=== PATIENT | male | born 1965 | race Caucasian/White ===

== ENCOUNTER 2017-03-26 16:07 | Emergency (ER) | payer OTHER ==
--- NOTE | 2017-03-26 17:02 | EDPHY ---
H & P Stated Complaint: right knee swelling and tenderness started on wednesday Time Seen by Provider: 03/26/17 16:20 HPI/ROS: CHIEF COMPLAINT: Right leg pain and swelling History by patient HISTORY OF PRESENT ILLNESS: 52 old man presents complaining of pain and swelling in his right leg. Patient states that he played [employer] 3 days ago and the next morning his leg felt slightly sore but over the past 48 hr the pain is increased. The pains been localized to behind his right knee. This morning he woke up in his knee and calf were swollen. He can walk on it but slightly painful. He has not taken anything for the pain. He has no prior history of DVT. There has been no direct trauma or immobilization. There is no family history of DVTs that he knows of. Patient quit smoking 6 years ago. He had some shortness of breath while playing [employer] but none since. He also facially feels a catch when he inhales but he states that both the racquetball shortness of breath and this feeling are typical of his asthma symptoms. He denies any chest pain. REVIEW OF SYSTEMS: As in HPI, and all other systems reviewed and are negative Source: Patient - Personal History Tetanus Vaccine Date: may 2011 - Medical/Surgical History Hx Asthma: Yes Hx Chronic Respiratory Disease: No Hx Diabetes: No Hx Cardiac Disease: No Hx Renal Disease: No Hx Cirrhosis: No Hx Alcoholism: No Hx HIV/AIDS: No Hx Splenectomy or Spleen Trauma: No Other PMH: TONSILECTOMY, asthma,. ORTHO SURGERIES. HYPERTENSION - Social History Smoking Status: Never smoked - Physical Exam Exam: General Appearance: Alert and no distress. Eyes: Pupils equal and round no injection. Extraocular movements intact Lungs: Bilateral clear to auscultation with no wheezes, rales or rhonchi Cardiac: Regular rate and rhythm, S1-S2 with no murmurs gallops rubs appreciated Abdomen: Soft nondistended, nontender with no masses Musculoskeletal: Neck is supple and nontender. Extremities: Right leg positive swelling of knee and calf, positive warmth, positive posterior knee and calf tenderness, positive Homans, positive abrasions right abebe, DP pulse 2 +and equal to the left, distal sensation and cap refill intact, full range of motion of knee and ankle. Neuro: Awake alert oriented x3 cranial she 12 intact, motor 5/5 and equal bilaterally Skin: No rashes or lesions except as described above. Constitutional: Initial Vital Signs Temperature (C) 37.1 C 03/26/17 16:18 Heart Rate 83 03/26/17 16:18 Respiratory Rate 18 03/26/17 16:18 Blood Pressure 165/101 H 03/26/17 16:18 O2 Sat (%) 93 03/26/17 16:18 O2 Delivery Mode Room Air Allergies/Adverse Reactions: Opioids - Morphine Analogues Allergy (Verified 03/26/17 16:16) Home Medications: Medication Instructions Recorded Advair 250/50 (*) 03/26/17 Albuterol 03/26/17 Enoxaparin Sodium 100 mg SQ BID #10 syringe 03/26/17 Flonase Nasal [place] 03/26/17 Metoprolol Succinate 03/26/17 Prilosec 03/26/17 Triamterene 03/26/17 Warfarin Sodium [Coumadin 5MG (*)] 5 mg PO DAILY #15 tab 03/26/17 Medical Decision Making - Diagnostics Imaging Results: Imaging Impressions Extremity Venous Study 03/26/17 17:52 Impression: 1. DVT is partially occlusive in the mid to distal femoral vein with complete occlusion of the popliteal vein and calf veins as detailed above as well as intramuscular venous drainage branches. Findings discussed with Vale Leong MD at 18:56 hour, 03/26/2017. Imaging: Discussed imaging studies w/ bait maker Radiologist ED Course/Re-evaluation: 52-year-old man presents with right leg pain and swelling concerning for DVT with high likelihood well score. Ultrasound was obtained which revealed partial mid femoral and occlusive popliteal DVT. Patient is hemodynamically stable, without multiple comorbidities or high bleeding risk. At this point there is no clinical evidence of pulmonary embolism or phlegmon cerulean dolens and therefore the patient was candidate for outpatient treatment. Patient was started on subcutaneous Lovenox and given a prescription for oral warfarin to start tomorrow. Patient was taught how to give himself Lovenox injections. He will return on Wednesday for INR check and follow up with his primary care physician Dr. Daigle as soon as possible for ongoing care and monitoring for his DVT. Patient has been counseled to avoid activities that could result in significant trauma, to not take ibuprofen or aspirin because of the anticoagulation to return if any worsening or new symptoms. - Data Points Laboratory Results: Laboratory Results 03/26/17 17:04 03/26/17 17:04 03/26/17 03/26/17 03/26/17 17:06 17:04 17:04 WBC 6.85 10^3/uL 10^3/uL (3.80-9.50) RBC 5.10 10^6/uL 10^6/uL (4.40-6.38) Hgb 16.4 g/dL g/dL (13.7-17.5) Hct 45.3 % % (40.0-51.0) MCV 88.8 fL fL (81.5-99.8) MCH 32.2 pg pg (27.9-34.1) MCHC 36.2 g/dL g/dL (32.4-36.7) RDW 12.4 % % (11.5-15.2) Plt Count 158 10^3/uL 10^3/uL (150-400) MPV 8.5 fL L fL (8.7-11.7) Neut % (Auto) 61.7 % % (39.3-74.2) Lymph % (Auto) 22.6 % % (15.0-45.0) Yates % (Auto) 12.7 % % (4.5-13.0) Eos % (Auto) 1.8 % % (0.6-7.6) Baso % (Auto) 0.6 % % (0.3-1.7) Nucleat RBC Rel Count 0.0 % % (0.0-0.2) Absolute Neuts (auto) 4.23 10^3/uL 10^3/uL (1.70-6.50) Absolute Lymphs (auto) 1.55 10^3/uL 10^3/uL (1.00-3.00) Absolute Monos (auto) 0.87 10^3/uL H 10^3/uL (0.30-0.80) Absolute Eos (auto) 0.12 10^3/uL 10^3/uL (0.03-0.40) Absolute Basos (auto) 0.04 10^3/uL 10^3/uL (0.02-0.10) Absolute Nucleated RBC 0.00 10^3/uL 10^3/uL (0-0.01) Immature Gran % 0.6 % % (0.0-1.1) Immature Gran # 0.04 10^3/uL 10^3/uL (0.00-0.10) PT 13.1 SEC SEC (12.0-15.0) INR 1.00 (0.83-1.16) APTT 33.0 SEC SEC (23.0-38.0) D-Dimer Sodium 138 mEq/L mEq/L (135-145) Potassium 3.3 mEq/L L mEq/L (3.5-5.2) Chloride 93 mEq/L L mEq/L (97-110) Carbon Dioxide 29 mEq/l mEq/l (22-31) Anion Gap 16 mEq/L mEq/L (8-16) BUN 16 mg/dL mg/dL (7-23) Creatinine 1.0 mg/dL mg/dL (0.7-1.3) Estimated GFR > 60 Glucose 96 mg/dL mg/dL (70-100) Calcium 9.1 mg/dL mg/dL (8.5-10.4) 03/26/17 17:04 WBC RBC Hgb Hct MCV MCH MCHC RDW Plt Count MPV Neut % (Auto) Lymph % (Auto) Yates % (Auto) Eos % (Auto) Baso % (Auto) Nucleat RBC Rel Count Absolute Neuts (auto) Absolute Lymphs (auto) Absolute Monos (auto) Absolute Eos (auto) Absolute Basos (auto) Absolute Nucleated RBC Immature Gran % Immature Gran # PT INR APTT D-Dimer REJ Sodium Potassium Chloride Carbon Dioxide Anion Gap BUN Creatinine Estimated GFR Glucose Calcium Medications Given: Discontinued Medications Enoxaparin Sodium (Lovenox) 100 mg SC EDNOW ONE Stop: 03/26/17 19:00 Last Admin: 03/26/17 19:27 Dose: 100 mg Departure - Departure Disposition: Home, Routine, Self-Care Clinical Impression: DVT (deep venous thrombosis) Qualifiers: DVT location: lower extremity Affected thrombotic vein of extremity: popliteal Chronicity: acute Laterality: right Qualified Code(s): I82.431 - Acute embolism and thrombosis of right popliteal vein Condition: Good Instructions: Warfarin (By mouth), Enoxaparin (By injection), Deep Vein Thrombosis (ED) Additional Instructions: You were seen by Dr. Vale Leong today. You have been diagnosed with a deep vein thrombosis of your popliteal vein. We have started you on enoxaparin subcutaneously twice a day. Please begin warfarin by mouth tomorrow. Continue the subcutaneous enoxaparin until your oral warfarin becomes therapeutic as measured by blood test called INR. You will continue on the enoxaparin until your INR is at a level between 2 and 3. Please come have your INR drawn on Wednesday and have the anticoagulation pharmacist adjust her dose of warfarin if needed. See your primary care physician Dr. Daigle as soon as possible. Do not take ibuprofen or aspirin while taking enoxaparin and warfarin. You may tight Tylenol as needed for pain and ice your leg. Return for any worsening or new concerns. Referrals: Varsha Metz MD [Primary Care Provider] - As per Instructions Prescriptions: Enoxaparin Sodium 100 mg SQ BID #10 syringe Warfarin Sodium [Coumadin 5MG (*)] 5 mg PO DAILY #15 tab
[2017-03-26 17:09] LABS: PLATELET COUNT 158 10^3/uL (150-400)
[2017-03-26 18:41] VITALS: BP 147/98; PULSE 86; RESP 16; TEMP 99.1; O2SAT 91
[2017-03-26] MEDS ORDERED: ENOXAPARIN 100 MG/ML SYR SC ONE (18:59)
[2017-03-26 19:25] LABS: PROTIME(PATIENT) 13.1 SEC (12.0-15.0)
== END 2017-03-26 19:40 | disposition home or self-care (01) ==
LOC: CED 16:07
DX: I82.431 Acute embolism and thrombosis of right popliteal vein (principal); J45.909 Unspecified asthma, uncomplicated; I10 Essential (primary) hypertension; Z79.01 Long term (current) use of anticoagulants
CPT/HCPCS: 80048-PO; 85025-PO; 85610-PO; 85730-PO; 93971-PO; J1650

== ENCOUNTER → 2017-09-10 | Outpatient (CLI) | payer OTHER | LOC: CIMAGING 16:56 | PROVIDERS: ATTEND Family Medicine | DX: I82.431 Acute embolism and thrombosis of right popliteal vein (principal) | CPT/HCPCS: 93971-PO ==